=== PATIENT | female | born 1995 ===

== ENCOUNTER 2020-09-12 15:12 | Outpatient (CLI) | payer MEDICAID, OTHER | END 2020-09-12 15:13 | disposition home or self-care (01) | LOC: LABHHL 15:12 | PROVIDERS: ATTEND Surgery | DX: N63.42 Unspecified lump in left breast, subareolar (principal); N63.12 Unspecified lump in the right breast, upper inner quadrant | CPT/HCPCS: 88112; 88305; 88312; 88342 ==